=== PATIENT | female | born 1955 | race African-American/Black ===

== ENCOUNTER 2016-07-22 13:10 | Emergency (ER) | payer OTHER ==
--- NOTE | ~2016-07-22 | CR157 ---
[facility] A Service of [facility] RADIOLOGY TEXT RESULTS PATIENT: ALIDA YUN LOCATION: [facility] : 55 UNIT #: [id number] AGE: [address]: Nancy Dc APRN SEX: F ORDER DR: [id number] [facility] [address] [facility] [address] [place], [place] [address] [id number] E MR#: [id number] Acc #: [id number] NAME: ALIDA YUN : 1955 SEX: F STUDY DATE/TIME: UNIT: [facility] ROOM: STUDY DESCRIPTION: CR Humerus Min 2 View Rt Attending Physician: Nancy Dc A.P.R.N. Ordering Physician: Pete Zavaleta M.D. Primary Care Physician: [facility] MEDICAL IMAGING REPORT This report is preliminary unless electronic signature is present EXAM Right humerus 2 views 07/22/2016 1245 hours CLINICAL HISTORY 60-year-old complaining of chronic right humerus pain for years worsening over the past 2 days. Patient hit arm 2 days ago. COMPARISON 04/14/2005 FINDINGS AP and lateral views of the right humerus demonstrate normal bone density. There is no fracture or dislocation. IMPRESSION Negative right humerus. Dictated by... Galilea Bauer M.D. THIS IS AN ELECTRONICALLY VERIFIED REPORT Galilea Bauer M.D. at 07/23/2016 9:34 AM NEHEMIAS/jody TD: 07/22/2016 16:21 JOB #: [id number] MEDICAL IMAGING REPORT Page 1 of 1 COPY
[~2016-07-22 13:10] MED LIST: AMOXICILLIN500 M1 PO; CLEOCIN HCL300 M1 PO; FLEXERIL10 MG PO; HCTZ PO; IBUPROFEN PO; IBUPROFEN800 MG PO; MOBIC PO; ORUDIS75 M1 PO; PREMARIN PO; ULTRAM PO
== END 2016-07-22 14:27 | disposition home or self-care (01) ==
LOC: CED 13:10
DX: M79.601 Pain in right arm (principal); I10 Essential (primary) hypertension; F17.210 Nicotine dependence, cigarettes, uncomplicated
CPT/HCPCS: 73060; 99283